=== PATIENT | male | born 1955 | race Caucasian/White ===

== ENCOUNTER 2016-11-05 15:08 | Observation (INO) | payer OTHER ==
[2016-11-05] MEDS: D5W 1/2 NS 1,000 ML IV SCH ×2 (15:08→23:49)
[2016-11-05 15:29] LABS: ADD DIFF? YES; ADD MORPH? NO; ADD SCAN? NO; ATYPICAL LYMPHOCYTE FLAG 0 (0-99); FRAGMENT RBC FLAG 0 (0-99); HEMATOCRIT 47.3 % (40.0-51.0); HEMOGLOBIN 17.3 g/dL (13.7-17.5); LEFT SHIFT FLG 10 (0-99); LIPEMIA HEMOLYSIS FLAG 90 (0-99); MEAN CELL HEMOGLOBIN 32.6 pg (27.9-34.1); MEAN CELL HEMOGLOBIN CONCENTR. 36.6 g/dL (32.4-36.7); MEAN CELL VOLUME 89.2 fL (81.5-99.8); MEAN PLATELET VOLUME 10.6 fL (8.7-11.7); PLATELET CLUMPS FLAG 0 (0-99); PLATELET COUNT 245 10^3/uL (150-400); RED CELL DISTRIBUTION WIDTH 12.1 % (11.5-15.2)
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
[2016-11-05 15:43] LABS: ANION GAP 21 mEq/L (8-16); CALCIUM 8.8 mg/dL (8.5-10.4); CARBON DIOXIDE 14 mEq/l (22-31); CHLORIDE 106 mEq/L (97-110); CREATININE 0.8 mg/dL (0.7-1.3); ETHANOL SERUM 177 mg/dL (0-10); GLOMERULAR FILTRATION RATE > 60; GLUCOSE 309 mg/dL (70-100); POTASSIUM 3.8 mEq/L (3.5-5.2); SODIUM 141 mEq/L (134-144)
[2016-11-05 16:02] LABS: PLATELET ESTIMATE ADEQUATE (ADEQ)
[2016-11-05 16:03] LABS: APTT 26.8 SEC (23.0-38.0); INR 1.05 (0.83-1.16); PROTIME(PATIENT) 13.6 SEC (12.0-15.0)
[2016-11-05] MEDS ORDERED: NALOXONE HCL 0.4 MG/ML INJ IVP PRN (16:09)
[2016-11-05] MEDS ORDERED: ONDANSETRON 4 MG/2 ML VIAL ONE (16:10)
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
[2016-11-05] MEDS: HYDROmorphONE/DILAUDID 1 MG/ML SYR IVP PRN ×2 (17:14→22:40)
[2016-11-05] MEDS: ONDANSETRON 4 MG/2 ML VIAL IVP PRN (18:10)
[2016-11-05 18:31] LABS: COLOR YELLOW; LEUKOCYTE ESTERASE,URINE NEGATIVE (NEGATIVE); NITRITE,URINE NEGATIVE (NEGATIVE)
[2016-11-05 18:37] LABS: BACTERIA TRACE /hpf (NONE SEEN); MUCUS TRACE /lpf (NONE-1+)
[2016-11-05 18:38] LABS: WBC,URINE NONE SEEN /hpf (0-3)
[2016-11-05] MEDS ORDERED: HALOPERIDOL LACT 5 MG/ML INJ IVP PRN (18:44)
[2016-11-05] MEDS ORDERED: LORazepam 2 MG/ML INJ IVP ONE (18:44)
[2016-11-05] MEDS ORDERED: LORazepam 2 MG/ML INJ IVP PRN ×2 (18:44)
[2016-11-05] MEDS ORDERED: LORazepam 1 MG TAB PO ONE (18:44)
[2016-11-05] MEDS ORDERED: LORazepam 2 MG/ML INJ ONE (18:45)
[2016-11-05] MEDS: DEXMEDETOMIDINE HCL 400 MCG in NS 100 ML IV SCH (19:14)
[2016-11-05 22:08] LABS: HEMATOCRIT 44.6 % (40.0-51.0); HEMOGLOBIN 16.5 g/dL (13.7-17.5); MEAN CELL HEMOGLOBIN 32.4 pg (27.9-34.1); MEAN CELL VOLUME 87.6 fL (81.5-99.8); RED BLOOD CELL COUNT 5.09 10^6/uL (4.40-6.38); RED CELL DISTRIBUTION WIDTH 12.1 % (11.5-15.2)
[2016-11-05] MEDS ORDERED: PROTOCOL K PHOSPHATE 1 DOSE IV PRN (22:24)
[2016-11-05] MEDS ORDERED: PROTOCOL POTASSIUM 1 DOSE MISC PRN (22:24)
[2016-11-05] MEDS ORDERED: PROTOCOL MAGNESIUM 1 DOSE IV PRN (22:24)
[2016-11-05] MEDS: FAMOTIDINE 20 MG TAB PO SCH (22:38)
[2016-11-05] MEDS: NICOTINE 21 MG/24 HR PATCH TD SCH (22:44)
[2016-11-06] MEDS: DEXMEDETOMIDINE HCL 400 MCG in NS 100 ML IV SCH (03:34)
[2016-11-06] MEDS: LORazepam 1 MG TAB PO PRN ×4 (04:12→12:25)
[2016-11-06 04:22] LABS: % IMMATURE GRANULYOCYTES 0.4 % (0.0-1.1); ABSOLUTE IMMATURE GRANULOCYTES 0.06 10^3/uL (0.00-0.10); ADD DIFF? NO; ADD MORPH? NO; ADD SCAN? NO; ATYPICAL LYMPHOCYTE FLAG 0 (0-99); FRAGMENT RBC FLAG 0 (0-99); HEMATOCRIT 43.1 % (40.0-51.0); HEMOGLOBIN 15.5 g/dL (13.7-17.5); LEFT SHIFT FLG 0 (0-99); LIPEMIA HEMOLYSIS FLAG 90 (0-99); MEAN CELL HEMOGLOBIN 32.2 pg (27.9-34.1); MEAN CELL VOLUME 89.4 fL (81.5-99.8); MEAN PLATELET VOLUME 10.9 fL (8.7-11.7); PLATELET CLUMPS FLAG 0 (0-99); PLATELET COUNT 197 10^3/uL (150-400); RED BLOOD CELL COUNT 4.82 10^6/uL (4.40-6.38); RED CELL DISTRIBUTION WIDTH 12.3 % (11.5-15.2)
[2016-11-06 04:26] LABS: ANION GAP 7 mEq/L (8-16); CALCIUM 8.2 mg/dL (8.5-10.4); CARBON DIOXIDE 26 mEq/l (22-31); CHLORIDE 105 mEq/L (97-110); CREATININE 0.6 mg/dL (0.7-1.3); GLOMERULAR FILTRATION RATE > 60; GLUCOSE 191 mg/dL (70-100); MAGNESIUM 2.1 mg/dL (1.6-2.3); POTASSIUM 4.5 mEq/L (3.5-5.2); SODIUM 138 mEq/L (134-144)
[2016-11-06] MEDS: HYDROmorphONE/DILAUDID 1 MG/ML SYR IVP PRN (06:14)
[2016-11-06] MEDS: D5W 1/2 NS 1,000 ML IV SCH (06:55)
[2016-11-06] MEDS ORDERED: IBUPROFEN 600 MG TAB PO PRN (08:23)
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
[2016-11-06] MEDS ORDERED: CYCLOBENZAPRINE 10 MG TAB PO PRN (08:24)
[2016-11-06] MEDS ORDERED: PNEUMOCOCCAL 0.5ML VACCINE VIAL IM ONE (08:29)
[2016-11-06] MEDS ORDERED: THIAMINE HCL 100 MG TAB PO SCH (09:00)
[2016-11-06] MEDS ORDERED: ENOXAPARIN 40 MG/0.4 ML SYR SC SCH (09:00)
[2016-11-06] MEDS ORDERED: GABAPENTIN 400 MG CAP PO SCH (09:00)
[2016-11-06] MEDS: FAMOTIDINE 20 MG TAB PO SCH (09:14)
[2016-11-06] MEDS: NICOTINE 21 MG/24 HR PATCH TD SCH (09:15)
[2016-11-06 12:20] VITALS: BP 168/90; RESP 20; TEMP 98.8; O2SAT 95
[2016-11-06] MEDS: ONDANSETRON 4 MG/2 ML VIAL IVP PRN (12:26)
[2016-11-06 14:46] VITALS: PULSE 94
[2016-11-06] MEDS ORDERED: ATORVASTATIN CALCIUM 10 MG TAB PO SCH (18:00)
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
[2016-11-06] MEDS ORDERED: AMITRIPTYLINE HCL 10 MG TAB PO SCH (21:00)
[2016-11-07 03:15] LABS: HEMOGLOBIN A1C 6.9 % (4.0-6.0)
--- NOTE | 2016-11-07 16:43 | TRAUMAPN ---
Assessment/Plan: Late entry - cervical spine was cleared by me clinically on the evening of 11/05/2016 at 1800 once the patient had cleared his acute EtOH intoxication. He cleared clinically without concern. Objective: Vital Signs Temp Pulse Resp BP Pulse Ox 37.1 C 94 20 168/90 H 95 11/06/16 12:00 11/06/16 14:00 11/06/16 12:00 11/06/16 12:00 11/06/16 12:00 Laboratory Results 11/06/16 04:09 11/06/16 04:09 11/06/16 11/07/16 11/08/16 05:59 05:59 05:59 Intake Total 3767 300 Output Total 3025 Balance 742 300 PT 13.6 SEC (12.0-15.0) 11/05/16 15:15 INR 1.05 (0.83-1.16) 11/05/16 15:15
== END 2016-11-06 14:42 | disposition home or self-care (01) ==
LOC: EDBD 15:08 → F2N 17:11
PROVIDERS: ADMIT Surgery; ATTEND Surgery
DX: S27.0XXA Traumatic pneumothorax, initial encounter (principal); F10.129 Alcohol abuse with intoxication, unspecified; M25.512 Pain in left shoulder; M25.542 Pain in joints of left hand; M25.422 Effusion, left elbow; M79.89 Other specified soft tissue disorders; M50.822 Other cervical disc disorders at C5-C6 level; M54.9 Dorsalgia, unspecified; Y90.6 Blood alcohol level of 120-199 mg/100 ml; E11.9 Type 2 diabetes mellitus without complications; Z79.84 Long term (current) use of oral hypoglycemic drugs; V47.5XXA Car driver injured in collision with fixed or stationary object in traffic accident, initial encounter; Y92.488 Other paved roadways as the place of occurrence of the external cause; Z23 Encounter for immunization
CPT/HCPCS: 70450; 71010; 71260; 72125; 72129; 72132; 72170; 73030; 73080; 73130; 74177; 90471; 97161; 97165; G0378; G8978; G8979; G8980; G8987; G8988; G8989; 80305; G0009; G0480; J1170; J1650; J2405; L0174